=== PATIENT | male | born 1965 | race Caucasian/White ===

== ENCOUNTER → 2016-10-05 | Day surgery (SDC) | payer BC ==
[2016-09-21 16:06] LABS: BASO % 0.4 %; BASO ABS # 0.03 K/uL (0-0.2); COMPLETE YES; EOS % 2.7 %; HEMATOCRIT 46.1 % (42-52); IG% 0.5 %; LYMPH % 29.5 %; LYMPH ABS # 2.48 K/uL (1.2-3.4); MEAN CELL VOLUME 84.6 fL (80-100); MEAN CORPUSCULAR HEMOGLOBIN 29.4 pg (25-34); MEAN CORPUSCULAR HGB CONC 34.7 g/dl (32-36); MEAN PLATELET VOLUME 9.8 fL (7.4-10.4); MONO % 8.4 %; NEUT % 58.5 %; PLATELET COUNT 233 K/uL (130-400); RED BLOOD COUNT 5.45 M/uL (4.7-6.1); WHITE BLOOD COUNT 8.41 K/uL (4.8-10.8)
[2016-09-21 16:24] LABS: BLOOD UREA NITROGEN 20 mg/dl (7-18); BUN/CREATININE RATIO 15.4 (10-20); CALCIUM 8.6 mg/dl (8.5-10.1); CARBON DIOXIDE 29 mmol/L (21-32); CHLORIDE 104 mmol/L (98-107); GLUCOSE 88 mg/dl (70-99); POTASSIUM 3.7 mmol/L (3.5-5.1); SODIUM 142 mmol/L (136-145)
[2016-10-03 10:07] VITALS: BMI 43.4
[2016-10-03 13:38] VITALS: BMI 43.0
--- NOTE | 2016-10-04 10:13 | PAT Medication Instructions ---
Service Date Oct 04, 2016. Current Home Medication List Aspirin Enteric Coated (Ecotrin Or Generic), 325 MG PO QAM Atorvastatin (Lipitor), 80 MG PO QAM Fish Oil ([place]-3), 1 CAP PO QAM Losartan Potassium & Hydrochlo (Losartan Potassium/Hydroc), 1 TAB PO QAM Metoprolol Succ (Toprol Xl) (Toprol-Xl ), 100 MG PO QAM Multivitamins/Minerals (Centrum *), 1 TAB PO QAM Medication Instructions For Your Scheduled Surgery - Hold the following medications 7 days prior to surgery per surgeon's instructions: Aspirin Enteric Coated (Ecotrin Or Generic), 325 MG PO QAM Fish Oil ([place]-3), 1 CAP PO QAM - Hold the following medications the morning of surgery: Multivitamins/Minerals (Centrum *), 1 TAB PO QAM Losartan Potassium & Hydrochlo (Losartan Potassium/Hydroc), 1 TAB PO QAM - Take the following medications the morning of surgery with a sip of water: Atorvastatin (Lipitor), 80 MG PO QAM Metoprolol Succ (Toprol Xl) (Toprol-Xl ), 100 MG PO QAM Addendum: Note was previously documented on incorrect account. These instructions are for 10/05/16 surgery. If you have any questions please call us at [phone] or [phone] or [phone]
--- NOTE | 2016-10-04 15:10 | History and Physical ---
History & Physical Date Oct 04, 2016. 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 Additional History Hepatic Disease: No Endocrine Disorder: No Kidney Disease: No Hypertension: No Heart Disease: No Bleeding Tendencies: No Infectious Diseases: No Allergies Coded Allergies: No Known Allergies (Verified , 09/21/16) Home Medications Scheduled Aspirin Enteric Coated (Ecotrin Or Generic), 325 MG PO QAM Atorvastatin (Lipitor), 80 MG PO QAM Fish Oil ([place]-3), 1 CAP PO QAM Losartan Potassium & Hydrochlo (Losartan Potassium/Hydroc), 1 TAB PO QAM Metoprolol Succ (Toprol Xl) (Toprol-Xl ), 100 MG PO QAM Multivitamins/Minerals (Centrum *), 1 TAB PO QAM Physical Examination Skin: warm/dry, no rash Eyes: normal inspection, EOMI, sclerae normal ENT: normal ENT inspection, pharynx normal Head: normocephalic, atraumatic Neck: supple, no adenopathy, trachea midline Respiratory/Chest: lungs clear, normal breath sounds, no respiratory distress Cardiovascular: regular rate, rhythm, no edema, no murmur Abdomen / GI: normal bowel sounds, non tender Back: normal inspection Extremities: normal inspection, normal range of motion Neurologic/Psych: no motor/sensory deficits, alert, normal reflexes, oriented x 3 Diagnosis inverted papilloma Plan of Treatment endoscopic sinus surgery/excision
[~2016-10-05] VITALS: Ht 185.4 cm; Wt 149.3 kg
[~2016-10-05] MED LIST: ASPI-113 PO; ATOR-26 PO; ATROPINE SULFATE 0.1 MG/ML 5ML SYR IV PRN; BACITRACIN OINT 15 GM TUBE ONE; CEFAZOLIN SOD 1 GM VIAL ONE; CNT PO; DEXAMETHASONE SOD INJ 4 MG/ML VIAL ONE; EpHEDrine SULFATE INJ 50 MG/ML AMP IV PRN; EpINEphrine INJ 1MG/ML AMP 1 MG/ML AMP ONE; FENTANYL CITRATE INJ 50 MCG/1 ML 2 ML VIAL IV PRN; FENTANYL CITRATE INJ 50 MCG/1 ML 2 ML VIAL ONE; GELATIN SPONGE 12-7MM ONE; GLYCOPYRROLATE INJ 0.2 MG/ML VIAL ONE; LACTATED RINGER'S 1000ML 1,000 ML IV SCH; LIDOCAINE 4% W/AFRIN NASAL SOLN 4ML ONE; LIDOCAINE HCL 2% 2 ML VIAL (20MG/ML) ONE; LIDOCAINE/EPINEPHRINE 1% 20 ML VIAL INJ ONE; LOSA50TA55 PO; METO1TAB69 PO; MIDAZOLAM HCL 1 MG/ML 2ML VIAL ONE; NEOSTIGMINE METHYLSULFATE 5 MG/5 ML SYR ONE; OMEG10007 PO; ONDANSETRON INJ 2 MG/ML 2 ML VIAL ONE; OXYC-57 PO; OXYCODONE/ACETAMINOPHEN 5-325 TAB PO PRN; PROPOFOL IV EMULSION 10 MG/ML 20 ML VIAL IV ONE; ROCURONIUM BROMIDE 10 MG/ML 5 ML VIAL ONE; SODIUM CHLORIDE 0.9% 1000ML 1,000 ML IV SCH; SUCCINYLCHOLINE CHLORIDE 20 MG/ML 10 ML VIAL IV ONE; TRIAMCINOLONE ACET 40 MG/ML VIAL ONE
[2016-10-05 09:01] VITALS: BP 144/74; PULSE 68; TEMP 36.7; O2SAT 99; Ht 185.4 cm; Wt 149.3 kg
--- NOTE | 2016-10-05 10:08 | History & Physical Bridge Note ---
H&P Re-Evaluation Bridge Note: I have examined the patient, reviewed the History & Physical and in the interval since the performance of the History & Physical I have noted the following changes of clinical significance: No changes noted
--- NOTE | 2016-10-05 13:11 | Discharge Instructions ---
Discharge Instructions Date of Service Oct 05, 2016. Admission Reason for Admission: Papilloma Discharge Discharge Diagnosis / Problem: same Discharge Goals Goal(s): Improve disease control Activity Recommendations Activity Limitations: resume your previous activity . Instructions / Follow-Up Instructions / Follow-Up ACTIVITY RECOMMENDATIONS: * Being up and around is good, but no strenuous activity, heavy lifting or physical exertion for one week. * Keep your head elevated 30 degrees when lying down or sleeping. * Do not blow your nose for 48 hours, sniff back instead. * Avoid hot showers. OVER THE COUNTER MEDICATIONS: * You may use Tylenol * Avoid aspirin or aspirin containing products, e.g. as they may increase bleeding. SPECIAL CARE INSTRUCTIONS: * Expect to have bloody drainage from your nose and/or down your throat for one to three days. Change drip pad as needed. * Begin irrigating your nose with saline solution today, at least six to ten times per day and sniff back to help remove old clots or crust. * You may experience nasal and facial congestion, pain and pressure, this is normal. * Please call with any significant and/or progressive pain, redness, swelling around the eyes, visual changes, fever of 101.5 degrees F, active bleeding or any problems or concerns. * If active bleeding occurs, spray the nose three times at one minute intervals with Afrin spray and call or cell phone: . If unable to reach the doctor, go to the nearest Emergency Department. Special Diet: * Avoid extremely hot fluids. FOLLOW UP VISIT: Follow-up Visit with Dr. Porter If not already scheduled, please call to schedule. Current Hospital Diet Patient's current hospital diet: Discharge Diet Recommended Diet: Regular Diet Procedures Procedures Performed: Endoscopic Sinus Surgery, Removal of Papilloma Left Nares Pending Studies Studies pending at discharge: no Medical Emergencies . Who to Call and When: Medical Emergencies: If at any time you feel your situation is an emergency, please call [phone] immediately. . Non-Emergent Contact Non-Emergency issues call your: Primary Care Provider . "Provider Documentation" section prepared by Jennifer Porter. VTE Core Measure Inpt VTE Proph given/why not?: SCD's [place] Drug Monitoring Program Search Results: no issues identified
--- NOTE | 2016-10-05 13:47 | Anesthesiology Progress Note ---
Anesthesia Post Op Note Date & Time Oct 05, 2016 at 13:47 Vital Signs Pain Intensity: 0 Vital Signs Past 12 Hours Date Time Temp Pulse Resp B/P Pulse Ox O2 Delivery O2 Flow Rate FiO2 10/05/16 13:34 36.6 74 20 166/88 97 Nasal Cannula 2 10/05/16 13:26 163/95 10/05/16 13:24 69 14 99 10/05/16 13:24 69 14 10/05/16 13:21 159/91 10/05/16 13:20 72 16 159/91 98 Mask 10 10/05/16 13:19 75 16 10/05/16 13:19 75 16 98 10/05/16 13:16 165/93 10/05/16 13:14 72 15 10/05/16 13:14 36.0 71 14 161/89 98 Mask 10 10/05/16 13:14 72 15 97 10/05/16 09:01 36.7 68 18 144/74 99 Room Air Notes Mental Status: alert / awake / arousable, participated in evaluation Pt Amnestic to Procedure: Yes Nausea / Vomiting: adequately controlled Pain: adequately controlled Airway Patency, RR, SpO2: stable & adequate BP & HR: stable & adequate Hydration State: stable & adequate Anesthetic Complications: no major complications apparent
[2016-10-05 14:02] VITALS: BP 154/84; PULSE 72; TEMP 36.6; O2SAT 95
--- NOTE | 2016-10-05 14:03 | OPERATIVE REPORT ---
DATE OF OPERATION: 10/05/2016 PREOPERATIVE DIAGNOSIS: Inverted papilloma of the sphenoid and ethmoid sinuses. POSTOPERATIVE DIAGNOSIS: Same. PROCEDURE: Right and left total ethmoid and right and left sphenoidotomy with removal of papilloma. SURGEON: Dr. Porter. ANESTHESIA: General endotracheal. COMPLICATIONS: None. BLOOD LOSS: 30 mL. 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 PROCEDURE: The patient was brought to the operating room, placed in supine position. General endotracheal anesthesia was induced, prepped, draped in usual sterile manner. Graphenics device calibrated for use for the entire procedure. The nose was decongested using cottonoids with topical solution of 4 mL of 4% Xylocaine with 1 mL of epinephrine. Injection of 2% Xylocaine with 1:100,000 strength epinephrine was also used. The papilloma was in the left sphenoid and also in the sphenoid, which was visualized on both sides. The papilloma was removed through a combination of techniques using the bipolar cautery near the left sphenoid optic nerve area. Because of previously noted dehiscence area of bone and also using the suction cautery and using the sinus curettes and also using the pituitary forceps. In this manner, all the polyps tucked into the floor of the sphenoid sinus extending towards the right side was removed. Sometimes the circulation assistant had to hold the forceps or the endoscope to allow visualization and then removal of the polyps using the varied instruments. In this manner all the visible papilloma was removed and then the papilloma on the left ethmoid area was also removed using the suction cautery and pituitary forceps. The procedure was performed from both ethmoids and both sphenoid sinuses. Graphenics computer guidance was used for the entire procedure to map out the area of bony dehiscence and avoid cautery in that area using the bipolar cautery in that area. The sinus was irrigated clean with saline. The patient tolerated the procedure well and was taken to recovery area in satisfactory condition. I attest to the content of the Intraoperative Record and any orders documented therein. Any exceptio ns are noted below.
[2016-10-05 14:30] VITALS: BP 164/85; PULSE 72; O2SAT 96
[2016-10-05 14:57] VITALS: BP 161/87; PULSE 80; TEMP 36.4; O2SAT 93
== END | disposition home or self-care (01) ==
LOC: C.ACU 09-21 14:44
PROVIDERS: ATTEND Otolaryngology
DX: D14.0 Benign neoplasm of middle ear, nasal cavity and accessory sinuses (principal); J01.20 Acute ethmoidal sinusitis, unspecified

== ENCOUNTER → 2016-10-25 | Outpatient (CLI) | payer BC ==
[~2016-10-25] MED LIST changes: -ATROPINE SULFATE 0.1 MG/ML 5ML SYR IV PRN; -BACITRACIN OINT 15 GM TUBE ONE; -CEFAZOLIN SOD 1 GM VIAL ONE; -DEXAMETHASONE SOD INJ 4 MG/ML VIAL ONE; -EpHEDrine SULFATE INJ 50 MG/ML AMP IV PRN; -EpINEphrine INJ 1MG/ML AMP 1 MG/ML AMP ONE; -FENTANYL CITRATE INJ 50 MCG/1 ML 2 ML VIAL IV PRN; -FENTANYL CITRATE INJ 50 MCG/1 ML 2 ML VIAL ONE; -GELATIN SPONGE 12-7MM ONE; -GLYCOPYRROLATE INJ 0.2 MG/ML VIAL ONE; -LACTATED RINGER'S 1000ML 1,000 ML IV SCH; -LIDOCAINE 4% W/AFRIN NASAL SOLN 4ML ONE; -LIDOCAINE HCL 2% 2 ML VIAL (20MG/ML) ONE; -LIDOCAINE/EPINEPHRINE 1% 20 ML VIAL INJ ONE; +LOSA50TA36 PO; -LOSA50TA55 PO; +METO100T44 PO; -METO1TAB69 PO; -MIDAZOLAM HCL 1 MG/ML 2ML VIAL ONE; -NEOSTIGMINE METHYLSULFATE 5 MG/5 ML SYR ONE; -ONDANSETRON INJ 2 MG/ML 2 ML VIAL ONE; -OXYCODONE/ACETAMINOPHEN 5-325 TAB PO PRN; -PROPOFOL IV EMULSION 10 MG/ML 20 ML VIAL IV ONE; -ROCURONIUM BROMIDE 10 MG/ML 5 ML VIAL ONE; -SODIUM CHLORIDE 0.9% 1000ML 1,000 ML IV SCH; -SUCCINYLCHOLINE CHLORIDE 20 MG/ML 10 ML VIAL IV ONE; -TRIAMCINOLONE ACET 40 MG/ML VIAL ONE
[2016-10-25 13:01] LABS: ALB/GLOB RATIO 1.2 (0.9-2); ALT/SGPT 74 U/L (12-78); AST/SGOT 34 U/L (15-37); BLOOD UREA NITROGEN 16 mg/dl (7-18); BUN/CREATININE RATIO 14.4 (10-20); CARBON DIOXIDE 30 mmol/L (21-32); CHLORIDE 105 mmol/L (98-107); CHOLESTEROL 135 mg/dl (0-200); GLUCOSE 95 mg/dl (70-99); POTASSIUM 4.1 mmol/L (3.5-5.1); SODIUM 141 mmol/L (136-145); TRIGLYCERIDES 133 mg/dl (0-150); VERY LOW DENSITY LIPOPROT CALC 27 mg/dl
[2016-10-25 13:02] LABS: ALKALINE PHOSPHATASE 90 U/L (45-117); CHOLESTEROL/HDL RATIO 3.4; HDL CHOLESTEROL 40 mg/dl; LDL CHOLESTEROL CALCULATED 68 mg/dl
== END | disposition home or self-care (01) ==
LOC: C.LABPVFM 08:04
PROVIDERS: ATTEND Internal Medicine Cardiovascular Disease
DX: I25.10 Atherosclerotic heart disease of native coronary artery without angina pectoris (principal); I10 Essential (primary) hypertension

== ENCOUNTER → 2017-09-20 | Outpatient (CLI) | payer OTHER ==
[~2017-09-20] MED LIST changes: -OXYC-57 PO
--- NOTE | 2017-09-20 14:57 | DIAGNOSTIC IMAGING REPORT ---
SINUSES WITH BRAIN LAB CT DOSE: 645.65 mGy.cm HISTORY: Polyposis POLYPS OF NASAL CAVITY TECHNIQUE: Multiaxial CT images of the paranasal sinuses were performed and reformatted in the coronal plane without the use of contrast. A dose lowering technique was utilized adhering to the principles of ALARA. COMPARISON: 07/11/2011 FINDINGS: Extensive postoperative changes are again noted. These appear to be similar. Improved mucosal thickening of the left maxillary sinus. Bilateral antral windows currently are patent. No significant mucosal thickening of the right maxillary sinus. Operative changes consistent with near complete prior ethmoidectomies. Mild residual mucosal thickening of the left ethmoid air cells similar compared to the prior study. Stable operative and destructive changes of the floor of the left ethmoid sinus as well as left lateral wall. The mucosal thickening of this region is diminished. Polypoid changes of the residual inferior and mid nasal turbinates are considered stable to perhaps minimally progressive on the left and improved on the right. Minimal mucosal thickening left frontal sinus considered stable. The orbits are unremarkable. IMPRESSION: 1. Extensive postoperative changes to the sinuses as described previously. 2. Postoperative and destructive changes to the floor and left lateral wall of the sphenoid sinus is stable. 3. In general moderate improvement in mucosal thickening of the sinuses compared to the prior study. 4. Moderate hypertrophic and polypoid change of the left and to a lesser extent right residual nasal turbinates. This is slightly progressive on the left and mildly improved on the right. The above report was generated using voice recognition software. It may contain grammatical, syntax or spelling errors. Electronically signed by: Calin Boyd M.D. 09/20/2017 2:55 PM Dictated Date/Time: 09/20/2017 2:48 PM
== END | disposition home or self-care (01) ==
LOC: C.CTS 14:28
PROVIDERS: ATTEND Otolaryngology
DX: J33.9 Nasal polyp, unspecified (principal)

== ENCOUNTER 2017-10-11 05:25 | Day surgery (SDC) | payer BC, OTHER ==
[2017-09-30 14:51] VITALS: BMI 43.0
--- NOTE | 2017-09-30 15:16 | PAT Medication Instructions ---
Service Date Sep 30, 2017. Current Home Medication List Aspirin Enteric Coated (Ecotrin Or Generic), 325 MG PO QAM Atorvastatin (Lipitor), 80 MG PO QAM Fish Oil ([place]-3), 1 CAP PO QAM Losartan Potassium & Hydrochlo (Losartan Potassium/Hydroc), 1 TAB PO QAM Metoprolol Succ (Toprol Xl) (Toprol-Xl ), 100 MG PO QAM Multivitamin (Multivitamin), 1 TAB PO QAM Medication Instructions For Your Scheduled Surgery - Hold the following medications starting 10/01/17: Fish Oil ([place]-3), 1 CAP PO QAM - Check with surgeon/pneumatic tool repairer for instructions: Aspirin Enteric Coated (Ecotrin Or Generic), 325 MG PO QAM - Hold the following medications the morning of surgery: Losartan Potassium & Hydrochlo (Losartan Potassium/Hydroc), 1 TAB PO QAM Multivitamin (Multivitamin), 1 TAB PO QAM - Take the following medications the morning of surgery with a sip of water: Metoprolol Succ (Toprol Xl) (Toprol-Xl ), 100 MG PO QAM Atorvastatin (Lipitor), 80 MG PO QAM If you have any questions please call us at [phone] or [phone] or [phone]
[2017-09-30 15:41] LABS: BASO % 0.3 %; BASO ABS # 0.03 K/uL (0-0.2); EOS % 1.7 %; EOS ABS # 0.16 K/uL (0-0.5); HEMATOCRIT 45.3 % (42-52); HEMOGLOBIN 15.6 g/dL (14.0-18.0); IG# 0.02 K/uL (0.00-0.02); LYMPH % 23.2 %; LYMPH ABS # 2.21 K/uL (1.2-3.4); MEAN CELL VOLUME 83.7 fL (80-100); MEAN CORPUSCULAR HEMOGLOBIN 28.8 pg (25-34); MEAN CORPUSCULAR HGB CONC 34.4 g/dl (32-36); MEAN PLATELET VOLUME 9.1 fL (7.4-10.4); MONO % 8.6 %; MONO ABS # 0.82 K/uL (0.11-0.59); NEUT ABS # 6.29 K/uL (1.4-6.5); PLATELET COUNT 240 K/uL (130-400); RED CELL DISTRIBUTION WIDTH CV 13.1 % (11.5-14.5); WHITE BLOOD COUNT 9.53 K/uL (4.8-10.8)
[2017-09-30 16:57] LABS: CALCIUM 8.9 mg/dl (8.5-10.1); CREATININE 1.01 mg/dl (0.60-1.40); POTASSIUM 3.7 mmol/L (3.5-5.1)
--- NOTE | 2017-10-10 13:29 | History and Physical ---
History & Physical Date Oct 10, 2017. Chief Complaint Recurrent inverted papilloma History of Present Illness The patient is a 52 year old male with complaints of recurrent growth of inverted papilloma in the sphenoid sinus Additional History Hepatic Disease: No Endocrine Disorder: No Kidney Disease: No Hypertension: Yes Heart Disease: No Bleeding Tendencies: No Infectious Diseases: No Allergies Coded Allergies: No Known Allergies (Verified , 09/30/17) Home Medications Scheduled Aspirin Enteric Coated (Ecotrin Or Generic), 325 MG PO QAM Atorvastatin (Lipitor), 80 MG PO QAM Fish Oil ([place]-3), 1 CAP PO QAM Losartan Potassium & Hydrochlo (Losartan Potassium/Hydroc), 1 TAB PO QAM Metoprolol Succ (Toprol Xl) (Toprol-Xl ), 100 MG PO QAM Multivitamin (Multivitamin), 1 TAB PO QAM Physical Examination Skin: warm/dry, no rash Eyes: normal inspection, EOMI, sclerae normal ENT: normal ENT inspection, pharynx normal Head: normocephalic, atraumatic Neck: supple, no adenopathy, trachea midline Respiratory/Chest: lungs clear, normal breath sounds, no respiratory distress Cardiovascular: regular rate, rhythm, no edema, no murmur Abdomen / GI: normal bowel sounds, non tender Back: normal inspection Extremities: normal inspection, normal range of motion Neurologic/Psych: no motor/sensory deficits, alert, normal reflexes, oriented x 3 Diagnosis Inverted papilloma Plan of Treatment Endoscopic sinus surgery
[~2017-10-11] VITALS: Ht 185.4 cm; Wt 150.1 kg
[~2017-10-11 05:25] MED LIST changes: -CNT PO; +MULT-506 PO
[2017-10-11] MEDS ORDERED: LACTATED RINGER'S 1000ML 1,000 ML IV SCH (06:00)
[2017-10-11 06:02] VITALS: BP 153/86; PULSE 71; TEMP 36.6; O2SAT 95; Ht 185.4 cm; Wt 150.1 kg
[2017-10-11] MEDS ORDERED: DEXAMETHASONE SOD INJ 4 MG/ML VIAL ONE (06:52)
[2017-10-11] MEDS ORDERED: LIDOCAINE HCL 2% 2 ML VIAL (20MG/ML) ONE (06:52)
[2017-10-11] MEDS ORDERED: ONDANSETRON INJ 2 MG/ML 2 ML VIAL ONE ×2 (06:52→08:18)
[2017-10-11] MEDS ORDERED: MIDAZOLAM HCL 1 MG/ML 2ML VIAL ONE (06:53)
[2017-10-11] MEDS ORDERED: PROPOFOL IV EMULSION 10 MG/ML 20 ML VIAL IV ONE (06:53)
[2017-10-11] MEDS ORDERED: FENTANYL CITRATE INJ 50 MCG/1 ML 2 ML VIAL ONE ×2 (06:53→07:48)
[2017-10-11] MEDS ORDERED: GELATIN SPONGE 12-7MM ONE (06:56)
[2017-10-11] MEDS ORDERED: TRIAMCINOLONE ACET 40 MG/ML VIAL ONE (06:57)
[2017-10-11] MEDS ORDERED: BACITRACIN OINT 15 GM TUBE ONE (06:57)
[2017-10-11] MEDS ORDERED: LIDOCAINE 4% INH SOLN 4 ML BTL ONE (06:57)
[2017-10-11] MEDS ORDERED: ACETAMINOPHEN 1000 MG/100 ML IV IV ONE (06:57)
[2017-10-11] MEDS ORDERED: EpINEphrine INJ 1MG/ML AMP 1 MG/ML AMP ONE (06:57)
[2017-10-11] MEDS ORDERED: ONDANSETRON INJ 2 MG/ML 2 ML VIAL IV PRN (07:00)
[2017-10-11] MEDS ORDERED: PHENYLEPHRINE 100MCG/ML 5ML SYR IV PRN (07:00)
[2017-10-11] MEDS ORDERED: ATROPINE SULFATE 0.1 MG/ML 5ML SYR IV PRN (07:00)
[2017-10-11] MEDS ORDERED: EpHEDrine SULFATE INJ 50 MG/ML AMP IV PRN (07:00)
[2017-10-11] MEDS ORDERED: FENTANYL CITRATE INJ 50 MCG/1 ML 2 ML VIAL IV PRN (07:00)
[2017-10-11] MEDS ORDERED: HYDROmorphone INJ 1 MG/ML SYR IV PRN (07:00)
[2017-10-11] MEDS ORDERED: SUCCINYLCHOLINE CHLORIDE 20 MG/ML 10 ML VIAL IV ONE (07:20)
[2017-10-11] MEDS ORDERED: KETAMINE HCL INJ 50 MG/ML 10 ML VIAL ONE (07:37)
[2017-10-11] MEDS ORDERED: SODIUM CHLORIDE 0.9% INJ 10 ML VIAL ONE (07:45)
[2017-10-11] MEDS ORDERED: CEFAZOLIN SOD 1 GM VIAL ONE ×2 (07:45→07:56)
[2017-10-11] MEDS ORDERED: LABETALOL HCL IV 5 MG/ML 20ML IV ONE (07:47)
[2017-10-11] MEDS: LIDO 2%/EPINEPHRINE 1:100000 20 ML VIAL INFIL ONE ×2 (07:52→08:30)
[2017-10-11] MEDS ORDERED: NEOSTIGMINE METHYLSULFATE 5 MG/5 ML SYR ONE (08:07)
[2017-10-11] MEDS ORDERED: GLYCOPYRROLATE INJ 0.2 MG/ML VIAL ONE (08:07)
[2017-10-11] MEDS ORDERED: ROCURONIUM BROMIDE 10 MG/ML 5 ML VIAL IV ONE (08:09)
--- NOTE | 2017-10-11 09:17 | [facility] Post Operative Brief Note ---
Immediate Operative Summary Operative Date Oct 11, 2017. Pre-Operative Diagnosis Inverted Papilloma Post-Operative Diagnosis Same Procedure(s) Performed Endoscopic Sinus Surgery Surgeon Dr. Jennifer Porter Auto Finance Sales Rep Surgeon(s) none Estimated Blood Loss 20mL Findings Consistent with Post-Op Diagnosis Specimens A. Left Sphenoid Papilloma Drains None Anesthesia Type General Complication(s) none Disposition Accompanied Pt To Recovery: yes Disposition: Recovery Room / PACU
[2017-10-11] MEDS ORDERED: SODIUM CHLORIDE 0.9% 1000ML 1,000 ML IV SCH (09:20)
--- NOTE | 2017-10-11 09:27 | [facility] Operative Report ---
Operative Report Operative Date Oct 11, 2017. Pre-Operative Diagnosis Inverted Papilloma Post-Operative Diagnosis Same Procedure(s) Performed Endoscopic Sinus Surgery with right and left frontal, left ethmoid, and bilateral sphenoidotomy Surgeon Dr. Jennifer Porter Market President Surgeon(s) none Estimated Blood Loss 20mL Findings Papilloma right and left sphenoid sinus Specimens A. Left Sphenoid Papilloma Drains None Anesthesia Type General Complication(s) none Disposition yes Recovery Room / PACU Indications 52-year-old male with recurrent inverted papilloma of the sphenoid and ethmoid sinuses Description of Procedure The patient was brought to the operating room and placed in the supine position. General endotracheal anesthesia was induced. Prodigy Game device was calibrated and used for the entire procedure. He was prepped and draped in the usual sterile manner with Betadine. The nose was decongested using cottonoids with a topical solution of 4 cc of 4% Xylocaine mixed with 1 cc of epinephrine. Injection of 2% Xylocaine with 1-100,000 strength epinephrine was also used in the middle meatus area and in the sphenoid using a spinal needle. Attention was turned to the sphenoid were papilloma was noted in the right inferior lateral sphenoid and also in the left sphenoid at its superior lateral wall and inferior wall extending to the lateral wall. Using the neurosurgical Roton instruments, the papilloma was dissected away from the bone of the sphenoid sinus taking care to preserve the underlying tissue superior laterally in the left sphenoid sinus where a previous bony defect was noted. After much dissecting the papilloma appear to be all removed hemostasis was then controlled using the bipolar cautery in the left sphenoid sinus and then the suction cautery along the floor of the sphenoid sinus and along the right side of the sphenoid sinus. Attention was turned to the frontal sinuses. The left nasal frontal duct was cannulated with the guidewire with Prodigy Game computer guidance and dilated using the 6 mm balloon. The guidewire was left in place as a marker. Recurrent polyps in the ethmoid were removed using the shaver couple with the [employer] device. The nasal frontal duct was redilated and then the balloon was withdrawn and a Contour stent was placed. The right frontal sinusotomy was performed in a similar manner. The sinuses were irrigated clean hemostasis was controlled using hemoderm powder. The patient tired procedure well was taken to the recovery area in satisfactory condition. I attest to the content of the Intraoperative Record and any orders documented therein. Any exceptions are noted below.
[2017-10-11] MEDS ORDERED: ACET-749 PO (09:28)
--- NOTE | 2017-10-11 09:29 | Discharge Instructions ---
Discharge Instructions Date of Service Oct 11, 2017. Admission Reason for Admission: Endoscopic Sinus Surgery For Papilloma Discharge Discharge Diagnosis / Problem: Same Discharge Goals Goal(s): Improve disease control Activity Recommendations Activity Limitations: resume your previous activity . Instructions / Follow-Up Instructions / Follow-Up ACTIVITY RECOMMENDATIONS: * Being up and around is good, but no strenuous activity, heavy lifting or physical exertion for one week. * Keep your head elevated 30 degrees when lying down or sleeping. * Do not blow your nose for 48 hours, sniff back instead. * Avoid hot showers. OVER THE COUNTER MEDICATIONS: * You may use Tylenol * Avoid aspirin or aspirin containing products, e.g. as they may increase bleeding. SPECIAL CARE INSTRUCTIONS: * Expect to have bloody drainage from your nose and/or down your throat for one to three days. Change drip pad as needed. * Begin irrigating your nose with saline solution today, at least six to ten times per day and sniff back to help remove old clots or crust. * You may experience nasal and facial congestion, pain and pressure, this is normal. * Please call with any significant and/or progressive pain, redness, swelling around the eyes, visual changes, fever of 101.5 degrees F, active bleeding or any problems or concerns. * If active bleeding occurs, spray the nose three times at one minute intervals with Afrin spray and call or cell phone: . If unable to reach the doctor, go to the nearest Emergency Department. Special Diet: * Avoid extremely hot fluids. FOLLOW UP VISIT: Follow-up Visit with Dr. Porter If not already scheduled, please call to schedule. Current Hospital Diet Patient's current hospital diet: Discharge Diet Recommended Diet: Regular Diet Procedures Procedures Performed: Endoscopic Sinus Surgery with right and left frontal, left ethmoid, and bilateral sphenoidotomy Pending Studies Studies pending at discharge: yes List of pending studies: Pathology Medical Emergencies . Who to Call and When: Medical Emergencies: If at any time you feel your situation is an emergency, please call [phone] immediately. . Non-Emergent Contact Non-Emergency issues call your: Primary Care Provider . "Provider Documentation" section prepared by Jennifer Porter. . [place] Drug Monitoring Program Search Results: no issues identified
[2017-10-11] MEDS ORDERED: OXYCODONE/ACETAMINOPHEN 5-325 TAB PO PRN ×2 (09:30)
--- NOTE | 2017-10-11 10:11 | Anesthesiology Progress Note ---
Anesthesia Post Op Note Date & Time Oct 11, 2017 at 10:10 Vital Signs Pain Intensity: 0 Vital Signs Past 12 Hours Date Time Temp Pulse Resp B/P (MAP) Pulse Ox O2 Delivery O2 Flow Rate FiO2 10/11/17 10:03 36.3 93 Room Air 10/11/17 10:02 132/71 10/11/17 10:01 74 18 10/11/17 10:01 75 18 95 10/11/17 09:57 133/65 10/11/17 09:56 71 18 91 10/11/17 09:56 71 18 10/11/17 09:52 129/74 10/11/17 09:51 73 7 94 10/11/17 09:51 73 7 10/11/17 09:50 76 15 10/11/17 09:50 78 15 97 10/11/17 09:47 124/70 10/11/17 09:45 66 18 10/11/17 09:45 66 18 94 10/11/17 09:42 129/76 10/11/17 09:40 74 16 10/11/17 09:40 76 16 92 10/11/17 09:39 68 17 93 10/11/17 09:39 68 17 10/11/17 09:37 117/72 10/11/17 09:34 69 15 10/11/17 09:34 69 15 94 10/11/17 09:32 135/65 10/11/17 09:29 80 24 92 10/11/17 09:29 81 24 10/11/17 09:27 119/76 10/11/17 09:24 68 20 10/11/17 09:24 68 20 92 10/11/17 09:22 108/65 10/11/17 09:19 36.4 89 16 108/65 94 Oxymask 10 10/11/17 06:02 36.6 71 20 153/86 (108) 95 Room Air Notes Mental Status: alert / awake / arousable, participated in evaluation Pt Amnestic to Procedure: Yes Nausea / Vomiting: adequately controlled Pain: adequately controlled Airway Patency, RR, SpO2: stable & adequate BP & HR: stable & adequate Hydration State: stable & adequate Anesthetic Complications: no major complications apparent
[2017-10-11 10:15] VITALS: BP 145/84; PULSE 70; TEMP 36.7; O2SAT 93
[2017-10-11 10:45] VITALS: BP 124/60; PULSE 82; O2SAT 94
[2017-10-11 11:15] VITALS: BP 147/81; PULSE 80; TEMP 36.4; O2SAT 94
== END 2017-10-11 11:29 | disposition home or self-care (01) ==
LOC: C.ACU 05:25
PROVIDERS: ATTEND Otolaryngology
DX: D14.0 Benign neoplasm of middle ear, nasal cavity and accessory sinuses (principal); Z79.82 Long term (current) use of aspirin
CPT/HCPCS: 31254; 31276; 31288; 61782; S1090

== ENCOUNTER → 2017-11-12 | Outpatient (CLI) | payer OTHER ==
[~2017-11-12] MED LIST changes: +ACET-749 PO
[2017-11-12 12:35] LABS: BASO % 0.4 %; BASO ABS # 0.03 K/uL (0-0.2); EOS ABS # 0.27 K/uL (0-0.5); HEMATOCRIT 47.9 % (42-52); HEMOGLOBIN 15.8 g/dL (14.0-18.0); IG# 0.02 K/uL (0.00-0.02); LYMPH % 32.7 %; LYMPH ABS # 2.19 K/uL (1.2-3.4); MEAN CORPUSCULAR HEMOGLOBIN 28.4 pg (25-34); MEAN PLATELET VOLUME 9.2 fL (7.4-10.4); MONO % 8.2 %; MONO ABS # 0.55 K/uL (0.11-0.59); NEUT % 54.4 %; NEUT ABS # 3.64 K/uL (1.4-6.5); PLATELET COUNT 239 K/uL (130-400); RED CELL DISTRIBUTION WIDTH CV 13.4 % (11.5-14.5); RED CELL DISTRIBUTION WIDTH SD 41.8 fL (36.4-46.3)
[2017-11-12 13:48] LABS: ALBUMIN 3.9 gm/dl (3.4-5.0); ALKALINE PHOSPHATASE 87 U/L (45-117); ALT/SGPT 81 U/L (12-78); AST/SGOT 44 U/L (15-37); BLOOD UREA NITROGEN 15 mg/dl (7-18); CALCIUM 8.9 mg/dl (8.5-10.1); CARBON DIOXIDE 29 mmol/L (21-32); CHOLESTEROL 113 mg/dl (0-200); CREATININE 1.18 mg/dl (0.60-1.40); GLUCOSE 94 mg/dl (70-99); POTASSIUM 3.8 mmol/L (3.5-5.1); SODIUM 140 mmol/L (136-145)
[2017-11-12 13:59] LABS: LDL CHOLESTEROL CALCULATED 59 mg/dl; TOTAL PROTEIN 7.5 gm/dl (6.4-8.2)
== END | disposition home or self-care (01) ==
LOC: C.LABPVFM 08:00
PROVIDERS: ATTEND Internal Medicine Cardiovascular Disease
DX: I25.10 Atherosclerotic heart disease of native coronary artery without angina pectoris (principal)